=== PATIENT | male | born 2000 | race Caucasian/White ===

== ENCOUNTER 2021-05-05 21:44 | Emergency (ER) | payer OTHER ==
[~2021-05-05] VITALS: Ht 193 cm; Wt 128.6 kg
[2021-05-06 04:16] VITALS: BP 122/63
== END 2021-05-06 04:17 | disposition home or self-care (01) ==
LOC: M ED 21:44
DX: S61.213A Laceration without foreign body of left middle finger without damage to nail, initial encounter (principal); X58.XXXA Exposure to other specified factors, initial encounter; Y92.89 Other specified places as the place of occurrence of the external cause; Y93.9 Activity, unspecified; Y99.1 Military activity